=== PATIENT | male | born 2005 | race Caucasian/White ===

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

== ENCOUNTER 2023-06-18 14:19 | Emergency (ER) | payer OTHER, SELFPAY ==
--- NOTE | ~2023-06-18 | XR_ITS ---
XR forearm RT 2V 06/18/2023 14:45 INDICATION: Right arm pain PROCEDURE: 2 views right forearm COMPARISON: No prior studies for comparison. FINDINGS: Fracture, dislocation or subluxation is not identified. The soft tissues appear within norm al limits. No foreign bodies are identified. IMPRESSION: 1: NO ACUTE BONE OR JOINT ABNORMALITY IDENTIFIED. Reviewed, dictated and finalized at location [facility]. TIC DIE MAKER APPRENTICE
[2023-06-18 14:28] VITALS: BP 144/78; PULSE 81; RESP 18; TEMP 36.9; O2SAT 99
--- NOTE | 2023-06-18 14:33 | ED.UPPEXIN ---
HPI - Extremity Injury (Upper) General Chief Complaint: Extremity Injury, Upper Stated Complaint: pain right forearm Time Seen by Provider: 06/18/23 14:34 Source: patient Mode of arrival: ambulatory Limitations: no limitations History of Present Illness HPI narrative: 17-year-old male presents with complaint of intermittent pain to right forearm for 1 year. Patient reports injury 1 year ago during [employer] match. states that he felt a pop in his right forearm when holding down an opponent. Did not seek medical care at that time. 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 Pain was better. Now just has intermittent spasming to right forearm. Denies change in range of motion. No pain to wrist, hand or elbow. Has not seen his primary care physician for this problem. All systems reviewed and negative except as noted above. Related Data Home Medications Medication Instructions Recorded Confirmed No Home Medications 06/18/23 06/18/23 Allergies Allergy/AdvReac Type Severity Reaction Status Date / Time No Known Allergies Allergy Unknown Verified 06/18/23 14:29 Review of Systems Review of Systems: CONSTITUTIONAL: Denies fever, chills, or sweats. EYES: Denies visual changes, redness, or discharge. ENT: Denies rhinorrhea, congestion, sore throat, or otalgia. CARDIOVASCULAR: Denies chest pain, palpitations, or edema. RESPIRATORY: Denies cough or dyspnea. GASTROINTESTINAL: Denies abdominal pain, nausea, vomiting, or diarrhea. GENITOURINARY: Denies dysuria or hematuria. SKIN: Denies rash or itching. MUSCULOSKELETAL: Denies back pain, joint pain, or myalgia. reports intermittent pain, spasming to right forearm. NEUROLOGIC: Denies headache, numbness, or weakness. PSYCHIATRIC: Denies anxiety or depression. All other systems reviewed are negative, except as documented in HPI. PMFSH Social History Social History Smoking status: Never smoker Alcohol intake: never Substance use: never Living arrangements: with family Occupation/Education: student Gender identity (if verbalized by the patient): Male Comments At time of signature, agree with nursing past medical, surgical, social and family history. There is no relevant family history pertinent to the presenting complaint. Exam Narrative: GENERAL: This is a well-nourished, well-developed patient, in no apparent distress. HEAD: normocephalic, atraumatic. EYES: PERRL. Sclera clear/white. Vision is grossly intact. EARS: External ears normal NOSE: External nose normal NECK: Neck supple, non-tender without lymphadenopathy, masses or thyromegaly. CARDIOVASCULAR: Regular rate and rhythm without murmurs, gallops, or rubs. RESPIRATORY: Clear to auscultation. Breath sounds equal bilaterally. No wheezes, rales, or rhonchi. SKIN: warm, Dry, intact with no suspicious lesions or rash, good texture and turgor. NEURO: awake, alert, and oriented to person, place and time. There were no obvious focal neurologic abnormalities. EXTREMITIES: No tenderness to right forearm. No bruising. Mild swelling noted when compared to left forearm. Normal range of motion. Distal neurovascularly intact. Course Course Level of Care: Express Care Visit Vital Signs Vital signs: Vital Signs Temperature 36.9 C 06/18/23 14:28 Pulse Rate 81 06/18/23 14:28 Respiratory Rate 18 06/18/23 14:28 Blood Pressure 144/78 H 06/18/23 14:28 Pulse Oximetry 99 06/18/23 14:28 Oxygen Delivery Room Air 06/18/23 14:28 Temperature 36.9 C 06/18/23 14:28 Pulse Rate 81 06/18/23 14:28 Respiratory Rate 18 06/18/23 14:28 Blood Pressure 144/78 H 06/18/23 14:28 Pulse Oximetry 99 06/18/23 14:28 Oxygen Delivery Room Air 06/18/23 14:28 Reviewed MDM - Extremity Injury (Upper) MDM Narrative Medical decision making narrative: Patient is aware of diagnos
== END 2023-06-18 15:17 | disposition home or self-care (01) ==
PROVIDERS: Emergency Provider Nurse Practitioner Family; PCP Family Medicine
DX: S56.911A Strain of unspecified muscles, fascia and tendons at forearm level, right arm, initial encounter (principal); X58.XXXA Exposure to other specified factors, initial encounter
CPT/HCPCS: 73090; 99213; G0463

== ENCOUNTER → 2023-08-24 12:48 | Outpatient (CLI) | payer OTHER, SELFPAY ==
--- NOTE | ~2023-08-24 | MR_ITS ---
EXAMINATION: MR forearm RT wo con DATE: 08/24/2023 13:23 INDICATION: Right forearm pain TECHNIQUE: Magnetic resonance imaging (MRI) of the right forearm was performed without intravenous co ntrast. Sequences included axial, sagittal and coronal T1-weighted FSE and fluid sensitive FSE STIR. COMPARISON: Radiographs dated 06/18/2023 FINDINGS: Bone alignment is normal. There is normal bone marrow signal throughout with no fracture, reactive ed keesha or pathologic marrow replacing process. There is no asymmetric muscular atrophy or abnormal muscl e signal throughout the visualized forearm. Tendons at the elbow, forearm and wrist appear normal. Ri ght spaces are normal. No joint effusions, tenosynovitis or other abnormal fluid collections. No abno rmal masses. IMPRESSION: 1. Unremarkable right forearm MRI. No etiology for reported generalized right forearm pain. Reviewed, dictated and finalized at location [facility]. ETIC GEAR CUSTODIAN IMPRESSION: 1. Unremarkable right forearm MRI. No etiology for reported generalized right f orearm pain.
== END ==
PROVIDERS: PCP Emergency Medicine; Visit Provider Emergency Medicine
DX: M79.631 Pain in right forearm (principal)
CPT/HCPCS: 73218

== ENCOUNTER 2024-01-24 14:23 | Emergency (ER) | payer OTHER, SELFPAY ==
[2024-01-24 14:35] VITALS: BP 137/85; PULSE 63; RESP 18; TEMP 36.6; O2SAT 100
--- NOTE | 2024-01-24 14:36 | ED.SKABFB ---
HPI - Skin/Abscess/Foreign Bdy General Chief complaint: Skin/Abscess/Foreign Body Stated complaint: Skin infection L side knee cap Time Seen by Provider: 01/24/24 14:36 Source: patient Mode of arrival: ambulatory Limitations: no limitations History of Present Illness HPI narrative: 18 yo M presents with c/o infection to L knee for 3 to 4 days. hx of staph infection. participates in martial arts. in the past thinks he got staph infection from gym mats. States he opened infection and drained himself yesterday. afebrile. All systems reviewed and negative except as noted above. Related Data Allergies Allergy/AdvReac Type Severity Reaction Status Date / Time No Known Allergies Allergy Unknown Verified 01/24/24 14:44 Review of Systems Review of Systems: CONSTITUTIONAL: Denies fever, chills, or sweats. EYES: Denies visual changes, redness, or discharge. ENT: Denies rhinorrhea, congestion, sore throat, or otalgia. CARDIOVASCULAR: Denies chest pain, palpitations, or edema. RESPIRATORY: Denies cough or dyspnea. GASTROINTESTINAL: Denies abdominal pain, nausea, vomiting, or diarrhea. GENITOURINARY: Denies dysuria or hematuria. SKIN: Denies rash or itching.Reports redness, swelling, drainage to lateral aspect left knee. MUSCULOSKELETAL: Denies back pain, joint pain, or myalgia. NEUROLOGIC: Denies headache, numbness, or weakness. PSYCHIATRIC: Denies anxiety or depression. All other systems reviewed are negative, except as documented in HPI. PMFSH Social History Social History Smoking status: Never smoker Alcohol intake: never Substance use: never Living arrangements: with family Occupation/Education: student Gender identity (if verbalized by the patient): Male Comments At time of signature, agree with nursing past medical, surgical, social and family history. There is no relevant family history pertinent to the presenting complaint. Exam Narrative: GENERAL: This is a well-nourished, well-developed patient, in no apparent distress. HEAD: normocephalic, atraumatic. EYES: PERRL. Sclera clear/white. Vision is grossly intact. EARS: External ears normal NOSE: External nose normal NECK: Neck supple, non-tender without lymphadenopathy, masses or thyromegaly. CARDIOVASCULAR: Regular rate and rhythm without murmurs, gallops, or rubs. RESPIRATORY: Clear to auscultation. Breath sounds equal bilaterally. No wheezes, rales, or rhonchi. SKIN: warm, Dry, intact with no suspicious lesions or rash, good texture and turgor. erythema to distal, lateral aspect L thigh(just above knee) approx. 3x4cm with purulent drainage, induration. NEURO: awake, alert, and oriented to person, place and time. There were no obvious focal neurologic abnormalities. EXTREMITIES: No joint tenderness, effusion, or edema noted. Course Course Level of Care: Express Care Visit Vital Signs Vital signs: Vital Signs Temperature 36.6 C 01/24/24 14:35 Pulse Rate 63 01/24/24 14:35 Respiratory Rate 18 01/24/24 14:35 Blood Pressure 137/85 01/24/24 14:35 Pulse Oximetry 100 01/24/24 14:35 Oxygen Delivery Room Air 01/24/24 14:35 Temperature 36.6 C 01/24/24 14:35 Pulse Rate 63 01/24/24 14:35 Respiratory Rate 18 01/24/24 14:35 Blood Pressure 137/85 01/24/24 14:35 Pulse Oximetry 100 01/24/24 14:35 Oxygen Delivery Room Air 01/24/24 14:35 Reviewed MDM - Skin/Abscess/Foreign Bdy MDM Narrative Medical decision making narrative: Patient is aware of diagnosis, understands and agrees to treatment plan. Anticipatory guidance given. Patient agrees to follow-up as directed and is aware of reasons to seek care at the emergency department. Portions of this record may have been created with voice recognition software Differential Diagnosis Differential diagnosis: Likely abscess of skin or subcutaneous tissue, cellulitis, impetigo and contact dermatitis Dis
== END 2024-01-24 15:14 | disposition home or self-care (01) ==
PROVIDERS: Emergency Provider Nurse Practitioner Family; PCP Emergency Medicine
DX: L02.416 Cutaneous abscess of left lower limb (principal)
CPT/HCPCS: 99213; G0463

== ENCOUNTER 2024-02-10 16:28 | Emergency (ER) | payer OTHER, SELFPAY ==
[2024-02-10 16:34] VITALS: BP 138/69; PULSE 72; RESP 18; TEMP 36.7; O2SAT 100
[2024-02-10 16:46] LABS: EDSTREPNEGPOS1 Presumptive Negative
--- NOTE | 2024-02-10 16:50 | ED.URI ---
HPI - URI/Sore Throat General Chief Complaint: Upper Respiratory Infection Stated Complaint: Sore Throat Time Seen by Provider: 02/10/24 16:36 Source: patient and RN notes reviewed Mode of arrival: ambulatory Limitations: no limitations History of Present Illness HPI Narrative: Patient presents today complaining of sore throat x1 week. Denies any additional symptoms to include cough, congestion, rhinorrhea, fever. Currently rates his pain 4/10 and has tried no kjma-wie-ybseyol treatment prior to arrival. Denies any known sick contacts. Related Data Home Medications Medication Instructions Recorded Confirmed No Home Medications 02/10/24 02/10/24 Allergies Allergy/AdvReac Type Severity Reaction Status Date / Time No Known Allergies Allergy Unknown Verified 01/24/24 14:44 Review of Systems Review of Systems: CONSTITUTIONAL: Denies body aches, fever, chills, or sweats. EYES: Denies visual changes, redness, or discharge. ENT: Denies rhinorrhea, congestion, or otalgia.+ sore throat CARDIOVASCULAR: Denies chest pain, palpitations, or edema. RESPIRATORY: Denies cough or dyspnea. GASTROINTESTINAL: Denies abdominal pain, nausea, vomiting, or diarrhea. GENITOURINARY: Denies dysuria or hematuria. SKIN: Denies rash, itching, or wounds. MUSCULOSKELETAL: Denies back pain, joint pain, or myalgia. NEUROLOGIC: Denies headache, numbness, tingling, or weakness. PSYCH: Denies depression or anxiety. PMFSH Social History Social History Smoking status: Never smoker Alcohol intake: never Substance use: never Living arrangements: with family Occupation/Education: student Gender identity (if verbalized by the patient): Male Comments At time of signature, I have reviewed and agree with nursing past medical, surgical, social and family history unless otherwise noted. Please see nursing chart for further information. There is no relevant family history pertinent to the presenting complaint Exam Narrative: GENERAL: Well-appearing, well-nourished, and in no acute distress. HEAD: Normocephalic, atraumatic. EYES: EOMI. No redness or drainage. Conjunctivae normal. ENT: Mucous membranes pink and moist. Nares clear. No rhinorrhea. TMs normal bilaterally. Throat normal. Uvula midline. NECK: Normal AROM. Supple. No lymphadenopathy. CHEST: No respiratory distress. Clear to auscultation. HEART: Regular rate and rhythm. No murmur appreciated. EXTREMITIES: Normal range of motion. No edema. SKIN: Warm, dry, no rash. Capillary refill normal. Normal skin turgor. NEURO: No focal deficits. Alert and oriented x3. Gait steady. PSYCH: Normal affect. No signs of depression or anxiety. Course Course Level of Care: Express Care Visit Vital Signs Vital signs: Vital Signs Temperature 98.0 F 02/10/24 16:34 Pulse Rate 72 02/10/24 16:34 Respiratory Rate 18 02/10/24 16:34 Blood Pressure 138/69 02/10/24 16:34 Pulse Oximetry 100 02/10/24 16:34 Oxygen Delivery Room Air 02/10/24 16:34 Temperature 98.0 F 02/10/24 16:34 Pulse Rate 72 02/10/24 16:34 Respiratory Rate 18 02/10/24 16:34 Blood Pressure 138/69 02/10/24 16:34 Pulse Oximetry 100 02/10/24 16:34 Oxygen Delivery Room Air 02/10/24 16:34 Reviewed MDM - URI/Sore Throat MDM Narrative Medical decision making narrative: Rapid strep negative. Culture pending. Symptoms likely viral in etiology. Discussed [id number] medication use and duration of illness. No prescription medications indicated at this time. Anticipatory guidance given. Differential Diagnosis Differential diagnosis: Likely upper respiratory infection, viral infection, pharyngitis and other (Strep throat, seasonal allergies) Lab Data Attestation: I reviewed the patient's lab results. Labs: Lab Results 02/10/24 Range/Units 16:44 POC Grp A Strep Screen Presumptive negative Gp A Be
== END 2024-02-10 17:00 | disposition home or self-care (01) ==
PROVIDERS: Emergency Provider Nurse Practitioner; PCP Emergency Medicine
DX: J02.9 Acute pharyngitis, unspecified (principal)
CPT/HCPCS: 87081; 87880; 99213; G0463